=== PATIENT | male | born 1990 | race Caucasian/White ===

== ENCOUNTER 2018-10-10 17:47 | Emergency (ER) | payer OTHER ==
[2018-10-10 18:40] VITALS: RESP 20; TEMP 98.1; O2SAT 98
[2018-10-10] MEDS ORDERED: ACETAMI/HYDROCO 325/10 TAB PO ONE (18:56)
[2018-10-10] MEDS ORDERED: IBUPROFEN 400 MG TAB PO ONE (18:56)
[2018-10-10] MEDS ORDERED: AMOXIL/CLAVULANATE 400/5 ML PDR PO ONE (18:57)
[2018-10-10] MEDS ORDERED: AMOXIL/CLAVULANATE 400/5 ML PDR ONE (19:00)
[2018-10-10] MEDS ORDERED: APAP/HYDROCODONE 1 EACH TABLET ONE (19:03)
[2018-10-10] MEDS ORDERED: IBUPROFEN 400 MG TAB ONE (19:03)
[2018-10-10 19:20] VITALS: BP 158/106; PULSE 116
== END 2018-10-10 19:18 | disposition home or self-care (01) | DRG 159 ==
LOC: ED 17:47
DX: K08.89 Other specified disorders of teeth and supporting structures (principal)
CPT/HCPCS: 99282; A9270-GY

== ENCOUNTER 2018-11-22 18:16 | Emergency (ER) | payer OTHER ==
[2018-11-22 18:58] VITALS: BP 156/96; PULSE 93; RESP 20; TEMP 98; O2SAT 100
[2018-11-22] MEDS ORDERED: AUGMENTIN(FRIDGE) 400 MG/5 ML PO ONE (19:20)
[2018-11-22] MEDS ORDERED: KETOROLAC TROMETHAMINE 30 MG/ML SOL IM ONE (19:21)
[2018-11-22] MEDS ORDERED: AUGMENTIN(FRIDGE) 400 MG/5 ML ONE (19:23)
[2018-11-22] MEDS ORDERED: KETOROLAC TROMETHAMINE 30 MG/ML SOL ONE (19:23)
== END 2018-11-22 20:46 | disposition home or self-care (01) | DRG 159 ==
LOC: ED 18:16
DX: K05.20 Aggressive periodontitis, unspecified (principal); K08.89 Other specified disorders of teeth and supporting structures
CPT/HCPCS: 70450; 96372; 99283; J1885; A9270-GY